=== PATIENT | male | born 1965 | race Caucasian/White ===

== ENCOUNTER 2023-06-14 18:11 | Emergency (ER) | payer BC, OTHER ==
[2023-06-14 18:20] VITALS: BP 124/78; PULSE 78; RESP 18; TEMP 98.2; BMI 24.0
[2023-06-14] MEDS ORDERED: KETOROLAC TROMETHAMINE 30 MG/1 ML VIAL ONE (20:25)
[2023-06-14] MEDS: KETOROLAC TROMETHAMINE 30 MG/1 ML VIAL IVPUSH ONE (20:26)
[2023-06-14] MEDS: SODIUM CHLORIDE 0.9% 500 ML INFUS.BAG IV ONE (20:26)
[2023-06-14] MEDS ORDERED: AMPICILLIN NA/SULBACTAM NA 3 GM VIAL ONE (20:27)
[2023-06-14 20:31] LABS: BASO % 0.5 % (0-2.0); EOS % 2.1 % (0-4.5); HEMATOCRIT 44.3 % (35.4-49); HEMOGLOBIN 15.3 GM/dL (11.7-16.9); LYMPH % 24.8 % (8-40); MCH 30.2 pg (25.7-33.7); MCHC 34.6 g/dl (32.0-35.9); MEAN CELL VOLUME 87.2 fl (80-96); MEAN PLT VOLUME 7.1 fl (7.5-11.1); MONO % 6.7 % (3.8-10.2); NEUT % 65.9 % (42.8-82.8); PLATELET COUNT 290 10^3/uL (134-434); RBC 5.08 M/mm3 (4.00-5.60); RDW 14.1 % (11.9-15.9); WHITE BLOOD COUNT 10.3 K/mm3 (4.0-10.0)
[2023-06-14] MEDS: AMPICILLIN NA/SULBACTAM NA 3 GM in DEXTROSE 5%-WATER 100 ML IVPB ONE (20:34)
[2023-06-14 20:53] LABS: POTASSIUM 3.8 mmol/L (3.5-5.1)
[2023-06-14 20:55] LABS: CALCIUM 9.7 mg/dL (8.5-10.1)
[2023-06-14 20:56] LABS: ALBUMIN 4.3 g/dl (3.4-5.0); BLOOD UREA NITROGEN 13.1 mg/dL (7-18)
[2023-06-14 20:58] LABS: CREATININE 0.8 mg/dL (0.55-1.3)
[2023-06-14 21:01] LABS: BILIRUBIN,TOTAL 0.6 mg/dL (0.2-1)
== END 2023-06-15 02:50 | disposition short-term general hospital (02) ==
LOC: JER 18:11
PROC: 3E03329 Introduction of Other Anti-infective into Peripheral Vein, Percutaneous Approach (ICD-10-PCS; principal; 2023-06-14)
PROC: 3E033GC Introduction of Other Therapeutic Substance into Peripheral Vein, Percutaneous Approach (ICD-10-PCS; 2023-06-14)
DX: R22.0 Localized swelling, mass and lump, head (principal); J34.0 Abscess, furuncle and carbuncle of nose; L03.211 Cellulitis of face; H05.011 Cellulitis of right orbit
CPT/HCPCS: 0241U-QW; 36415; 70487-TC; 80053; 85025; 87040; 99285-25; Q9967